=== PATIENT | male | born 1940 | race Caucasian/White ===

== ENCOUNTER 2018-09-23 11:43 | Outpatient (CLI) | payer MEDICARE, BC | END 2018-09-23 23:59 | disposition home or self-care (01) | LOC: LAB.R 11:43 | PROVIDERS: ATTEND Nurse Practitioner Gerontology | DX: Z12.11 Encounter for screening for malignant neoplasm of colon (principal) | CPT/HCPCS: 82274 ==

== ENCOUNTER 2018-11-13 04:55 | Outpatient (CLI) | payer MEDICARE, BC | END 2018-11-13 04:56 | disposition short-term general hospital (02) | LOC: EMS 04:55 | PROVIDERS: ATTEND Surgery | DX: R07.9 Chest pain, unspecified (principal); R42 Dizziness and giddiness; R51 Headache | CPT/HCPCS: A0425; A0427 ==

== ENCOUNTER 2018-11-16 16:53 | Outpatient (CLI) | payer MEDICARE, BC | END 2018-11-16 16:54 | disposition critical access hospital (66) | LOC: EMS 16:53 | PROVIDERS: ATTEND Surgery | DX: M25.551 Pain in right hip (principal); R11.0 Nausea; R61 Generalized hyperhidrosis | CPT/HCPCS: A0425; A0427 ==

== ENCOUNTER 2018-11-16 17:07 | Emergency (ER) | payer MEDICARE, BC ==
[2018-11-16] MEDS ORDERED: oxyCODONE 5 MG TABLET PO STA (17:30)
--- NOTE | 2018-11-16 17:51 | ED Physician Documentation ---
History of Present Illness - Stated complaint Stated Complaint: HIP PX - Chief complaint Chief Complaint: Trauma Ext - History obtained from History obtained from: Patient, Family - History of Present Illness Timing: How many days ago (2) Pain level max: 10 Pain level now: 10 - Additonal information Additional information: 78-year-old male presents the emergency department 2 days status post a fall, landing on the right buttock. He had an ST elevation FL at that point, was taken to [facility] where they did a stent and angiogram. He is now on Plavix. Has had continuing pain to the right buttock and hip. Worse with movement. Better with rest. Review of Systems Ten Systems: 10 systems reviewed and negative Constitutional: denies: Fever, Chills Nose: denies: Rhinorrhea / runny nose, Congestion Cardiac: denies: Chest pain / pressure, Palpitations Respiratory: denies: Cough GI: denies: Vomiting, Diarrhea Skin: denies: Rash Musculoskeletal: denies: Neck pain, Back pain Neurologic: denies: Headache PD PAST MEDICAL HISTORY - Past Medical History Past Medical History: Yes Cardiovascular: Hypertension, High cholesterol, Atrial fibrillation Respiratory: None Neuro: None Endocrine/Autoimmune: None GI: Crohn's disease : None HEENT: None Psych: None Musculoskeletal: None Derm: None - Past Surgical History Past Surgical History: Yes Cardiovascular: Coronary stent, Cardiac catheterization - Present Medications Home Medications: Ambulatory Orders Medication Instructions Recorded Confirmed Oxycodone HCl/Acetaminophen 1 - 2 each PO Q6H PRN #14 tablet 11/16/18 [Percocet 5-325 mg Tablet] - Allergies Allergies/Adverse Reactions: Allergies Allergy/AdvReac Type Severity Reaction Status Date / Time No Known Drug Allergies Allergy Verified 11/16/18 17:19 - Social History Does the pt smoke?: No Smoking Status: Never smoker Does the pt drink ETOH?: Yes ETOH Use: Wine Does the pt have substance abuse?: No - Immunizations Immunizations are current?: No - POLST Patient has POLST: No PD ED PE NORMAL - Vitals Vital signs reviewed: Yes - General General: Alert and oriented X 3, No acute distress - HEENT HEENT: Moist mucous membranes - Derm Derm: Warm and dry - Extremities Extremities: Other (Tender to palpation over the right buttock. Large hematoma. Also tender over the greater trochanter of the right hip. Pain with range of motion. Neurovascularly intact. Groin entry catheterization site appears without any swelling. Mild bruising. ) - Neuro Neuro: Alert and oriented X 3 - Psych Psych: Normal mood, Normal affect Results - Vitals Vitals: Vital Signs - 24 hr 11/16/18 11/16/18 17:15 19:00 Temperature 36.8 C 37.4 C Heart Rate 75 78 Respiratory 18 14 Rate Blood Pressure 149/88 H 136/68 H O2 Saturation 99 98 Oxygen O2 Source Room air - Rads (name of study) Right hip x-ray Radiology: Prelim report reviewed, EMP read contemporaneously, See rad report (No acute bony abnormality) PD MEDICAL DECISION MAKING - ED course Complexity details: reviewed results, re-evaluated patient, considered differential, d/w patient, d/w family ED course: 78-year-old male with a right buttock contusion. He is on Plavix. Segundo bandage placed as well as ice. Will prescribe pain medication and a walker for home. Neurovascular intact. No evidence of secondary infection. Patient counseled regarding signs and symptoms for which I believe and urgent re-evaluation would be necessary. Patient with good understanding of and agreement to plan and is comfortable going home at this time This document was made in part using voice recognition software. While efforts are made to proofread this document, sound alike and grammatical errors may occur. Departure - Departure Disposition: 01 Home, Self Care Clinical Impression: Hematoma Condition: Good Instructions: ED Hematoma Follow-Up: Oly Hampton ARNP [Primary Care Provider] - Within 3 Days (for hematoma check) Prescriptions: Oxycodone HCl/Acetaminophen [Percocet 5-325 mg Tablet] 1 - 2 each PO Q6H PRN #14 tablet PRN Reason: pain Comments: Use the medications as needed for pain. Use the walker to help you ambulate. Ice will also help as will compression of the area. Do not drink alcohol or drive while on narcotic pain medicine. Note that many narcotic pain relievers also contain tylenol/acetaminophen. Please ensure that your total dose of acetaminophen from all sources does not exceed 3 grams (3000mg) per day. You may constipated on this medication, take a stool softener such as "Colace" twice a day while you are on it. Also recommend a kaez-vra-stjapua laxative such as senna or MiraLAX any day that you do not have a bowel movement. If you received narcotic pain medication in the emergency department, do not drive or operate machinery for the next 24 hours. Discharge Date/Time: 11/16/18 19:01
--- NOTE | 2018-11-16 18:20 | XRAY Report ---
Reason: fall 2 days ago, R hip pain Procedure Date: 11/16/2018 Accession Number: [id number] / [id number] Procedure: XR - Hip w/Pelvis 2-3V RT CPT Code: FULL RESULT: EXAM: RIGHT HIP RADIOGRAPHY EXAM DATE: 11/16/2018 06:09 PM. CLINICAL HISTORY: Fall 2 days ago, R hip pain. COMPARISON: None. TECHNIQUE: 2 views. FINDINGS: Bones: Normal. No fractures or bone lesion. Joints: Normal. No dislocation. The hip joint space is preserved. Soft Tissues: Vascular calcification is seen within the soft tissues. No soft tissue swelling. IMPRESSION: No acute displaced fracture or malalignment. RADIA
[2018-11-16 19:18] VITALS: BP 136/68
[2018-11-16] MEDS ORDERED: oxyCODONE/ACET 5/325 Prepack 4 PO STA (20:00)
== END 2018-11-16 19:01 | disposition home or self-care (01) ==
LOC: EDUNIT# → ED 17:07
DX: S30.0XXA Contusion of lower back and pelvis, initial encounter (principal); W18.30XA Fall on same level, unspecified, initial encounter; I10 Essential (primary) hypertension; I25.2 Old myocardial infarction; Z79.02 Long term (current) use of antithrombotics/antiplatelets; Z95.5 Presence of coronary angioplasty implant and graft
CPT/HCPCS: 73502; 99283; A9270

== ENCOUNTER 2019-01-07 09:39 | Day surgery (SDC) | payer MEDICARE, BC ==
[2019-01-07] MEDS ORDERED: LACTATED RINGERS 1,000 ML IV ONE (10:30)
[2019-01-07] MEDS ORDERED: fentaNYL 100 MCG/2 ML VIAL IVP ONE (12:01)
[2019-01-07] MEDS ORDERED: MIDAZOLAM 2 MG/2 ML VIAL IVP ONE (12:01)
[2019-01-07 13:10] VITALS: BP 138/90
== END 2019-01-07 09:40 | disposition home or self-care (01) ==
LOC: SDS 09:39
PROVIDERS: ATTEND Surgery
PROC: 0DJD8ZZ Inspection of Lower Intestinal Tract, Via Natural or Artificial Opening Endoscopic (ICD-10-PCS; principal; 2019-01-07 11:45)
DX: R19.5 Other fecal abnormalities (principal); K57.30 Diverticulosis of large intestine without perforation or abscess without bleeding; K64.8 Other hemorrhoids; I10 Essential (primary) hypertension; I25.2 Old myocardial infarction; Z95.1 Presence of aortocoronary bypass graft; Z95.5 Presence of coronary angioplasty implant and graft
CPT/HCPCS: 45378; J7120

== ENCOUNTER 2019-01-11 09:22 | Outpatient (CLI) | payer MEDICARE, BC | END 2019-01-11 09:23 | disposition home or self-care (01) | LOC: RT 09:22 | PROVIDERS: ATTEND Internal Medicine Interventional Cardiology | DX: I49.9 Cardiac arrhythmia, unspecified (principal) | CPT/HCPCS: 93005 ==

== ENCOUNTER 2019-02-25 12:49 | Outpatient (CLI) | payer MEDICARE, BC ==
--- NOTE | 2019-02-26 09:10 | XRAY Report ---
Reason: SHOULDER JOINT PAIN Procedure Date: 02/25/2019 Accession Number: [id number] / [id number] Procedure: XRN - Shoulder 3 View LT CPT Code: FULL RESULT: EXAM: LEFT SHOULDER RADIOGRAPHY EXAM DATE: 02/25/2019 01:10 PM. CLINICAL HISTORY: Shoulder joint pain. COMPARISON: None. TECHNIQUE: 3 views. FINDINGS: Bones: Normal. No fracture or bone lesion. Joints: Mild narrowing of the subacromial space and mild to moderate narrowing of the glenohumeral articulation. AC articulation space appears within normal limits. No calcific tendinosis detected. Soft tissues: The visualized hemithorax is unremarkable. No soft tissue swelling. 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 RADIA
== END 2019-02-25 12:50 | disposition home or self-care (01) ==
LOC: DI.N 12:49
PROVIDERS: ATTEND Nurse Practitioner Gerontology
DX: M19.012 Primary osteoarthritis, left shoulder (principal)

== ENCOUNTER 2019-05-03 08:13 | Outpatient (CLI) | payer MEDICARE, BC ==
[2019-05-03 12:40] LABS: BUN - BLOOD UREA NITROGEN 22 mg/dL (6-20); CARBON DIOXIDE - CO2 26 mmol/L (21-32); CHLORIDE 107 mmol/L (101-111); CHOL/HDL RATIO 2.6 (<5.0); CHOLESTEROL 135 mg/dL; CREATININE 0.8 mg/dL (0.6-1.2); GFR - MDRD 94 (>89); GLUCOSE 106 mg/dL (70-100); HDL CHOLESTEROL 52 mg/dL; LDL CHOLESTEROL,CALCULATED 73 mg/dL; LDL/HDL RATIO 1.4 (<3.6); SODIUM 138 mmol/L (135-145); VLDL CHOLESTEROL 10 mg/dL
== END 2019-05-03 23:59 | disposition home or self-care (01) ==
LOC: LAB.N 08:13
PROVIDERS: ATTEND Internal Medicine Interventional Cardiology
DX: I25.10 Atherosclerotic heart disease of native coronary artery without angina pectoris (principal)
CPT/HCPCS: 36415; 80048; 80061; 83721

== ENCOUNTER 2019-08-10 07:39 | Outpatient (CLI) | payer MEDICARE, BC ==
[2019-08-10 12:31] LABS: CHOL/HDL RATIO 3.1 (<5.0); CHOLESTEROL 148 mg/dL; HDL CHOLESTEROL 48 mg/dL; LDL CHOLESTEROL,CALCULATED 83 mg/dL; LDL/HDL RATIO 1.7 (<3.6); MAGNESIUM 2.3 mg/dL (1.7-2.8); VLDL CHOLESTEROL 17 mg/dL
[2019-08-10 12:53] LABS: ALBUMIN 3.9 g/dL (3.2-5.5); ALBUMIN/GLOBULIN RATIO 1.3 (1.0-2.2); CALCIUM 8.9 mg/dL (8.5-10.3); CREATININE 1.1 mg/dL (0.6-1.2); TOTAL PROTEIN 6.8 g/dL (6.7-8.2)
== END 2019-08-10 23:59 | disposition home or self-care (01) ==
LOC: LAB.N 07:39
PROVIDERS: ATTEND Internal Medicine Cardiovascular Disease
DX: I48.0 Paroxysmal atrial fibrillation (principal); I25.10 Atherosclerotic heart disease of native coronary artery without angina pectoris; I10 Essential (primary) hypertension; I25.2 Old myocardial infarction
CPT/HCPCS: 36415; 80053; 80061; 83721; 83735; 84443

== ENCOUNTER 2020-08-25 08:00 | Outpatient (CLI) | payer MEDICARE, BC ==
[2020-08-25 18:58] LABS: CALCIUM 9.2 mg/dL (8.5-10.3); CREATININE 0.9 mg/dL (0.6-1.2); POTASSIUM 4.3 mmol/L (3.5-5.0)
== END 2020-08-25 23:59 | disposition home or self-care (01) ==
LOC: LAB.WCP 08:00
PROVIDERS: ATTEND Internal Medicine Cardiovascular Disease
DX: I10 Essential (primary) hypertension (principal)
CPT/HCPCS: 36415; 80048

== ENCOUNTER 2021-08-28 07:37 | Outpatient (CLI) | payer MEDICARE, BC ==
[2021-08-28 12:27] LABS: ALBUMIN/GLOBULIN RATIO 1.5 (1.0-2.2); ALKALINE PHOSPHATASE 51 IU/L (42-121); ALT ALANINE AMINOTRANSFERASE 20 IU/L (10-60); AST ASPARTATE AMINOTRANSFERASE 20 IU/L (10-42); BILIRUBIN,TOTAL 0.9 mg/dL (0.2-1.0); BUN - BLOOD UREA NITROGEN 23 mg/dL (6-20); CARBON DIOXIDE - CO2 27 mmol/L (21-32); CHLORIDE 104 mmol/L (101-111); CHOL/HDL RATIO 2.6 (<5.0); CHOLESTEROL 137 mg/dL; CREATININE 0.9 mg/dL (0.6-1.2); GFR - MDRD 81 (>89); GLUCOSE 108 mg/dL (70-100); HDL CHOLESTEROL 53 mg/dL; LDL CHOLESTEROL,CALCULATED 74 mg/dL; LDL/HDL RATIO 1.4 (<3.6); POTASSIUM 4.2 mmol/L (3.5-5.0); SODIUM 140 mmol/L (135-145); TOTAL PROTEIN 6.7 g/dL (6.7-8.2); TRIGLYCERIDES 49 mg/dL; VLDL CHOLESTEROL 10 mg/dL
== END 2021-08-28 07:38 | disposition home or self-care (01) ==
LOC: LAB.N 07:37
PROVIDERS: ATTEND Internal Medicine Cardiovascular Disease
DX: I48.0 Paroxysmal atrial fibrillation (principal); E78.5 Hyperlipidemia, unspecified
CPT/HCPCS: 36415; 80053; 80061; 83721

== ENCOUNTER 2022-06-03 07:42 | Outpatient (CLI) | payer MEDICARE, BC ==
[2022-06-03 08:20] LABS: BUN - BLOOD UREA NITROGEN 24 mg/dL (6-20); CALCIUM 9.4 mg/dL (8.5-10.3); CARBON DIOXIDE - CO2 27 mmol/L (21-32); CHLORIDE 108 mmol/L (101-111); CHOL/HDL RATIO 2.6 (<5.0); CHOLESTEROL 147 mg/dL; CREATININE 0.8 mg/dL (0.6-1.2); GFR - MDRD 93 (>89); GLUCOSE 106 mg/dL (70-100); HDL CHOLESTEROL 57 mg/dL; LDL CHOLESTEROL,CALCULATED 82 mg/dL; LDL/HDL RATIO 1.4 (<3.6); POTASSIUM 4.8 mmol/L (3.5-5.0); SODIUM 141 mmol/L (135-145); TRIGLYCERIDES 42 mg/dL; VLDL CHOLESTEROL 8 mg/dL
== END 2022-06-03 07:43 | disposition home or self-care (01) ==
LOC: LAB 07:42
PROVIDERS: ATTEND Internal Medicine Cardiovascular Disease
DX: I48.0 Paroxysmal atrial fibrillation (principal); I25.10 Atherosclerotic heart disease of native coronary artery without angina pectoris
CPT/HCPCS: 36415; 80048; 80061; 83721

== ENCOUNTER 2023-02-17 07:33 | Outpatient (CLI) | payer MEDICARE, BC ==
[2023-02-17 07:46] LABS: BASOPHILS # (AUTO) 0.1 10^3/uL (0.0-0.1); BASOPHILS % (AUTO) 0.7 %; EOSINOPHILS # (AUTO) 0.2 10^3/uL (0.0-0.7); EOSINOPHILS % (AUTO) 2.4 %; HCT - HEMATOCRIT 42.7 % (42.0-52.0); HGB - HEMOGLOBIN 14.5 g/dL (14.0-18.0); LYMPHOCYTES # (AUTO) 1.1 10^3/uL (1.5-3.5); LYMPHOCYTES % (AUTO) 15.1 %; MEAN CORPUSCULAR HEMOGLOBIN 32.3 pg (27.0-31.0); MEAN CORPUSCULAR VOLUME 95.1 fL (80.0-94.0); MEAN PLATELET VOLUME 11.1 fL (7.4-11.4); MONOCYTES # (AUTO) 0.6 10^3/uL (0.0-1.0); MONOCYTES % (AUTO) 7.9 %; NEUTROPHILS # (AUTO) 5.2 10^3/uL (1.5-6.6); NEUTROPHILS % (AUTO) 73.6 %; PLT - PLATELET COUNT 215 10^3/uL (130-450); RED BLOOD COUNT 4.49 10^6/uL (4.70-6.10); RED CELL DISTRIBUTION WIDTH 13.3 % (12.0-15.0)
[2023-02-17 08:00] LABS: ALBUMIN 3.9 g/dL (3.2-5.5); ALBUMIN/GLOBULIN RATIO 1.6 (1.0-2.2); ALKALINE PHOSPHATASE 62 IU/L (42-121); ALT ALANINE AMINOTRANSFERASE 18 IU/L (10-60); AST ASPARTATE AMINOTRANSFERASE 17 IU/L (10-42); BILIRUBIN,TOTAL 0.8 mg/dL (0.2-1.0); BUN - BLOOD UREA NITROGEN 28 mg/dL (6-20); CALCIUM 9.3 mg/dL (8.5-10.3); CARBON DIOXIDE - CO2 29 mmol/L (21-32); CHLORIDE 109 mmol/L (101-111); CHOL/HDL RATIO 2.7 (<5.0); CHOLESTEROL 121 mg/dL; GFR - MDRD 72 (>89); GLUCOSE 101 mg/dL (74-104); HDL CHOLESTEROL 45 mg/dL; LDL CHOLESTEROL,CALCULATED 64 mg/dL; LDL/HDL RATIO 1.4 (<3.6); POTASSIUM 4.5 mmol/L (3.5-4.5); SODIUM 140 mmol/L (135-145); TOTAL PROTEIN 6.4 g/dL (6.4-8.9); TRIGLYCERIDES 62 mg/dL (48-352); VLDL CHOLESTEROL 12 mg/dL
== END 2023-02-17 07:34 | disposition home or self-care (01) ==
LOC: LAB 07:33
PROVIDERS: ATTEND Physician Assistant Medical
DX: I10 Essential (primary) hypertension (principal); E78.5 Hyperlipidemia, unspecified
CPT/HCPCS: 36415; 80053; 80061; 83721; 85025

== ENCOUNTER 2023-04-07 09:53 | Outpatient (CLI) | payer MEDICARE, BC ==
[2023-04-07 10:04] LABS: BASOPHILS % (AUTO) 0.6 %; EOSINOPHILS # (AUTO) 0.2 10^3/uL (0.0-0.7); EOSINOPHILS % (AUTO) 2.2 %; HCT - HEMATOCRIT 45.4 % (42.0-52.0); LYMPHOCYTES # (AUTO) 0.9 10^3/uL (1.5-3.5); LYMPHOCYTES % (AUTO) 13.4 %; MEAN CORPUSCULAR HEMOGLOBIN 31.5 pg (27.0-31.0); MEAN CORPUSCULAR VOLUME 95.4 fL (80.0-94.0); MEAN PLATELET VOLUME 11.2 fL (7.4-11.4); MONOCYTES # (AUTO) 0.6 10^3/uL (0.0-1.0); MONOCYTES % (AUTO) 9.4 %; NEUTROPHILS % (AUTO) 74.3 %; PLT - PLATELET COUNT 240 10^3/uL (130-450); RED BLOOD COUNT 4.76 10^6/uL (4.70-6.10); RED CELL DISTRIBUTION WIDTH 13.3 % (12.0-15.0); WHITE BLOOD COUNT 6.7 x10^3/uL (4.8-10.8)
[2023-04-07 10:17] LABS: CALCIUM 9.4 mg/dL (8.5-10.3); CREATININE 1.2 mg/dL (0.6-1.3); POTASSIUM 4.7 mmol/L (3.5-4.5)
== END 2023-04-07 09:54 | disposition home or self-care (01) ==
LOC: LAB 09:53
PROVIDERS: ATTEND Internal Medicine Cardiovascular Disease
DX: I48.0 Paroxysmal atrial fibrillation (principal)
CPT/HCPCS: 36415; 80048; 85025

== ENCOUNTER 2023-05-05 07:47 | Outpatient (CLI) | payer MEDICARE, BC ==
[2023-05-05 08:02] LABS: BASOPHILS # (AUTO) 0.1 10^3/uL (0.0-0.1); BASOPHILS % (AUTO) 0.8 %; EOSINOPHILS # (AUTO) 0.1 10^3/uL (0.0-0.7); EOSINOPHILS % (AUTO) 1.9 %; HGB - HEMOGLOBIN 14.1 g/dL (14.0-18.0); LYMPHOCYTES # (AUTO) 0.8 10^3/uL (1.5-3.5); LYMPHOCYTES % (AUTO) 11.8 %; MEAN CORPUSCULAR HEMOGLOBIN 31.3 pg (27.0-31.0); MEAN CORPUSCULAR HGB CONC 32.8 g/dL (32.0-36.0); MEAN CORPUSCULAR VOLUME 95.3 fL (80.0-94.0); MONOCYTES # (AUTO) 0.4 10^3/uL (0.0-1.0); MONOCYTES % (AUTO) 6.4 %; NEUTROPHILS % (AUTO) 78.8 %; PLT - PLATELET COUNT 243 10^3/uL (130-450); RED BLOOD COUNT 4.51 10^6/uL (4.70-6.10); RED CELL DISTRIBUTION WIDTH 13.5 % (12.0-15.0); WHITE BLOOD COUNT 6.4 x10^3/uL (4.8-10.8)
[2023-05-05 08:44] LABS: CALCIUM 9.2 mg/dL (8.5-10.3); CREATININE 1.1 mg/dL (0.6-1.3); POTASSIUM 4.3 mmol/L (3.5-4.5)
== END 2023-05-05 07:48 | disposition home or self-care (01) ==
LOC: LAB 07:47
PROVIDERS: ATTEND Internal Medicine Cardiovascular Disease
DX: I48.0 Paroxysmal atrial fibrillation (principal)
CPT/HCPCS: 36415; 80048; 85025

== ENCOUNTER 2023-07-18 13:53 | Outpatient (CLI) | payer MEDICARE, BC | END 2023-07-18 13:54 | disposition home or self-care (01) | LOC: RT 13:53 | PROVIDERS: ATTEND Nurse Practitioner Family | DX: I10 Essential (primary) hypertension (principal) | CPT/HCPCS: 93005 ==

== ENCOUNTER 2024-02-16 07:34 | Outpatient (CLI) | payer MEDICARE, BC ==
[2024-02-16 08:18] LABS: ALBUMIN 4.1 g/dL (3.2-5.5); ALBUMIN/GLOBULIN RATIO 1.5 (1.0-2.2); ALKALINE PHOSPHATASE 60 IU/L (42-121); ALT ALANINE AMINOTRANSFERASE 23 IU/L (10-60); AST ASPARTATE AMINOTRANSFERASE 20 IU/L (10-42); BILIRUBIN,TOTAL 0.6 mg/dL (0.2-1.0); BUN - BLOOD UREA NITROGEN 20 mg/dL (6-20); CALCIUM 9.2 mg/dL (8.5-10.3); CARBON DIOXIDE - CO2 30 mmol/L (21-32); CHLORIDE 108 mmol/L (101-111); CHOL/HDL RATIO 2.6 (<5.0); CHOLESTEROL 138 mg/dL; CREATININE 0.8 mg/dL (0.6-1.3); GFR - MDRD 93 (>89); GLUCOSE 107 mg/dL (74-104); HDL CHOLESTEROL 54 mg/dL; LDL CHOLESTEROL,CALCULATED 74 mg/dL; LDL/HDL RATIO 1.4 (<3.6); POTASSIUM 4.4 mmol/L (3.5-4.5); SODIUM 141 mmol/L (135-145); TOTAL PROTEIN 6.9 g/dL (6.4-8.9); TRIGLYCERIDES 51 mg/dL; VLDL CHOLESTEROL 10 mg/dL
== END 2024-02-16 07:35 | disposition home or self-care (01) ==
LOC: LAB 07:34
PROVIDERS: ATTEND Physician Assistant Medical
DX: I25.10 Atherosclerotic heart disease of native coronary artery without angina pectoris (principal); Z12.5 Encounter for screening for malignant neoplasm of prostate
CPT/HCPCS: 36415; 80053; 80061; G0103; 83721; 84153